=== PATIENT | female | born 1980 ===

== ENCOUNTER 2017-10-13 14:15 | Emergency (ER) | payer SELFPAY ==
[2017-10-13 14:21] VITALS: BP 127/80; PULSE 76; RESP 18; TEMP 97.8; O2SAT 98
--- NOTE | 2017-10-13 15:13 | C.PDOC ---
History Of Present Illness 37 y/o female presents to the ER complaining of mild right ear pain which has been present since yesterday. Patient states that she was cleaning her right ear yesterday and she had blood coming out of her ear in the morning today. Patient denies having fever, runny nose, cough, and sore throat. Time Seen by Provider: 10/13/17 14:30 Chief Complaint (Nursing): ENT Problem History Per: Patient History/Exam Limitations: None Onset/Duration Of Symptoms: Days Current Symptoms Are (Timing): Still Present Severity: Moderate Past Medical History Reviewed: Historical Data, Nursing Documentation, Vital Signs Vital Signs: Last Vital Signs Temp 97.8 F 10/13/17 14:18 Pulse 76 10/13/17 14:18 Resp 18 10/13/17 14:18 BP 127/80 10/13/17 14:18 Pulse Ox 98 10/13/17 18:27 - Medical History PMH: No Chronic Diseases Surgical History: No Surg Hx Family History: States: No Known Family Hx - Social History Hx Alcohol Use: No Hx Substance Use: No - Immunization History Hx Tetanus Toxoid Vaccination: No Hx Influenza Vaccination: No Hx Pneumococcal Vaccination: No Review Of Systems Except As Marked, All Systems Reviewed And Found Negative. Constitutional: Negative for: Fever, Chills ENT: Positive for: Ear Pain (right ear pain). Negative for: Nose Discharge, Throat Pain Respiratory: Negative for: Cough Physical Exam - Physical Exam Appears: Non-toxic, No Acute Distress Skin: Normal Color, Warm Head: Atraumatic, Normacephalic Ear(s): Left: Normal, Right: Other (dried blood in ear canal, no discharge in ear canal, no swelling, questionable TM perforation) Nose: Normal Oral Mucosa: Moist Throat: Normal, No Erythema, No Exudate Neck: Supple Chest: Symmetrical Cardiovascular: Rhythm Regular Respiratory: Normal Breath Sounds, No Rales, No Rhonchi, No Wheezing Neurological/Psych: Oriented x3, Normal Speech ED Course And Treatment O2 Sat by Pulse Oximetry: 98 (RA) Pulse Ox Interpretation: Normal Progress Note: Patient given Amoxicillin PO and Motrin PO. Patient has been discharged with prescription for Amoxicillin and Naproxen. She has been instructed to follow up with an ENT within 1 week. Disposition Counseled Patient/Family Regarding: Diagnosis, Need For Followup, Rx Given - Disposition Referrals: Mandeep Pinto MD [Staff Provider] - Disposition: HOME/ ROUTINE Disposition Time: 15:10 Condition: STABLE Additional Instructions: FOLLOW UP WITH EAR NOSE THROAT SPECIALIST WITHIN 1 WEEK USE MEDICATIONS DIRECTED DO NOT INSERT COTTON SWABS IN EAR RETURN TO EMERGENCY ROOM IF SYMPTOMS WORSEN SEGUIMIENTO CON ESPECIALISTA DE GARGANTA DE OJOS DE ODO DENTRO DE 1 SEMANA USE MEDICAMENTOS SEGN LO INDICADO NO INSERTE SWABS DE ALGODN EN EL ODO REGRESE AL BRE DE EMERGENCIA SI LOS SNTOMAS EMPEORAN Prescriptions: Amoxicillin 875 mg PO BID #14 tab Naproxen 375 mg PO BID PRN #20 tablet PRN Reason: pain Instructions: Ruptured Eardrum (DC) Forms: [employer] (Montserratian) Print Language: MALAYSIAN - POA Present On Arrival: None - Clinical Impression Clinical Impression: Ear abrasion, Eardrum trauma - Scribe Statement The provider has reviewed the documentation as recorded by the Scribe Tori Andre Provider Attestation: All medical record entries made by the Scribe were at my direction and personally dictated by me. I have reviewed the chart and agree that the record accurately reflects my personal performance of the history, physical exam, medical decision making, and the department course for this patient. I have also personally directed, reviewed, and agree with the discharge instructions and disposition.
[2017-10-13] MEDS ORDERED: Amoxicillin-Clav 500-125 mg Tab PO ONE (15:27)
== END 2017-10-13 15:28 | disposition home or self-care (01) ==
LOC: C.ER 14:15
DX: S00.411A Abrasion of right ear, initial encounter (principal); X58.XXXA Exposure to other specified factors, initial encounter; Y92.9 Unspecified place or not applicable

== ENCOUNTER 2018-05-17 17:56 | Emergency (ER) | payer SELFPAY ==
[2018-05-17 18:06] VITALS: BMI 30.2
[2018-05-17 18:17] VITALS: BP 114/79; PULSE 73; RESP 16; TEMP 98.4; O2SAT 97
--- NOTE | 2018-05-17 18:49 | C.PDOC ---
History Of Present Illness 37 yo female come in for evaluation of urticaria rash gradually developed for past 2 days ' after had cookies". Pt sts, rash is itchy, gradually spread over body. Otherwise ,pt denies fever, chills, recent illness, headache, dizziness, throat tightness or swelling, CP, SOB, dyspnea, wheezing, abd. pain, N/V, denies previous hx of allergy to food. Ambulate to Ed for evaluation, not in resp. distress. Time Seen by Provider: 05/17/18 18:11 Chief Complaint (Nursing): Allergic Reaction History Per: Patient Past Medical History Reviewed: Historical Data, Nursing Documentation, Vital Signs Vital Signs: Last Vital Signs Temp 98.4 F 05/17/18 18:17 Pulse 73 05/17/18 18:17 Resp 16 05/17/18 18:17 BP 114/79 05/17/18 18:17 Pulse Ox 97 05/17/18 18:17 - Medical History PMH: Hypothyroidism Family History: States: No Known Family Hx - Social History Hx Tobacco Use: No Hx Alcohol Use: No Hx Substance Use: No - Immunization History Hx Tetanus Toxoid Vaccination: No Hx Influenza Vaccination: No Hx Pneumococcal Vaccination: No Review Of Systems Except As Marked, All Systems Reviewed And Found Negative. Constitutional: Negative for: Fever, Chills ENT: Negative for: Mouth Swelling, Throat Pain, Throat Swelling Cardiovascular: Negative for: Chest Pain, Palpitations Respiratory: Negative for: Cough, Shortness of Breath, Wheezing Gastrointestinal: Negative for: Nausea, Vomiting, Abdominal Pain Genitourinary: Negative for: Dysuria Skin: Positive for: Rash Neurological: Negative for: Weakness, Numbness, Altered Mental Status, Headache, Dizziness Physical Exam - Physical Exam Appears: Well, Non-toxic, No Acute Distress Skin: Normal Color, Warm, Dry, Rash (scattered urticaria rash to anterior neck, B/L UEs, abdomen. No evidence of cellulitis) Eye(s): bilateral: PERRL Ear(s): Bilateral: Normal Nose: No Flaring, No Discharge Oral Mucosa: Moist, No Drooling Tongue: No Swelling Lips: No Swelling Throat: No Drooling, Other (uvula midline, no edema.) Neck: Supple Cardiovascular: Rhythm Regular, No Murmur, No JVD Respiratory: No Decreased Breath Sounds, No Accessory Muscle Use, No Stridor, No Wheezing Gastrointestinal/Abdominal: Soft, No Tenderness Extremity: Normal ROM, No Pedal Edema, No Swelling Neurological/Psych: Oriented x3, Normal Speech ED Course And Treatment O2 Sat by Pulse Oximetry: 97 Pulse Ox Interpretation: Normal Progress Note: On re-evaluation, pt is afebrile, hemodynamicaly stable. Non- toxic. Tolerate Po well in ED. PuslEOx 97% RA. ENT: no acute findings. uvula midline, no edema. Lungs: CTA B/L, BS equal B/L. ABd: benign, (-) guarding, (-) rebound. back: (-) CVA tenderness. SKin: scattered urticaria rash to body, no evidence of cellulitis. Pt has clinical findings c/w urticaria likely sec to allergy to food. Pt advised. ref. to F/u with PMD, Ballistic Technician in 2-3 days for re-eval. return if any new changes Disposition Counseled Patient/Family Regarding: Diagnosis, Need For Followup - Disposition Referrals: [facility] [Outside] Disposition: HOME/ ROUTINE Disposition Time: 18:45 Condition: STABLE Additional Instructions: Avoid food that cause allergic reaction take medication as prescribed Follow up with PMD, Ballistic Technician in 2-3 days for re-evaluation. Return to ED if any worsening or new changes Prescriptions: DiphenhydrAMINE [Benadryl] 25 mg PO BID #10 cap Famotidine [Pepcid] 20 mg PO BID #10 tab Prednisone [Deltasone] 40 mg PO DAILY #6 tablet Instructions: Mitchell Print Language: LAO - Clinical Impression Clinical Impression: Urticaria
== END 2018-05-17 18:56 | disposition home or self-care (01) ==
LOC: C.ER 17:56
DX: L50.9 Urticaria, unspecified (principal)

== ENCOUNTER 2018-10-12 07:12 | Emergency (ER) | payer OTHER, SELFPAY ==
[2018-10-12 07:12] VITALS: BMI 30.2
[2018-10-12 07:18] VITALS: BP 117/79; TEMP 98.6; O2SAT 97
--- NOTE | 2018-10-12 07:39 | C.PDOC ---
History Of Present Illness 38 y/o female presents to the ER complaining of watery diarrhea which has been present for the past 1 day. Patient states that she took Imodium at 1:30 am. However, patient continued to have diarrhea so she decided to come to the ER. She notes that she has some cramping intestinal pain. 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 Denies having fever,chills, nausea, vomiting, dysuria,hematuria, and unusual food intake. Time Seen by Provider: 10/12/18 07:23 Chief Complaint (Nursing): Abdominal Pain History Per: Patient History/Exam Limitations: no limitations Onset/Duration Of Symptoms: Days Current Symptoms Are (Timing): Still Present Severity: Moderate Past Medical History Reviewed: Historical Data, Nursing Documentation, Vital Signs Vital Signs: Last Vital Signs Temp 98.6 F 10/12/18 07:16 Pulse 102 H 10/12/18 07:16 Resp 20 10/12/18 07:16 BP 117/79 10/12/18 07:16 Pulse Ox 97 10/12/18 07:16 - Medical History PMH: Hyperthyroidism, Hypothyroidism Surgical History: Appendectomy Family History: States: No Known Family Hx - Social History Hx Tobacco Use: No Hx Alcohol Use: No Hx Substance Use: No - Immunization History Hx Tetanus Toxoid Vaccination: No Hx Influenza Vaccination: No Hx Pneumococcal Vaccination: No Review Of Systems Except As Marked, All Systems Reviewed And Found Negative. Constitutional: Negative for: Fever, Chills Gastrointestinal: Positive for: Abdominal Pain, Diarrhea. Negative for: Nausea, Vomiting Physical Exam - Physical Exam Appears: Non-toxic, No Acute Distress Skin: Normal Color, Warm, Dry Head: Atraumatic, Normacephalic Eye(s): bilateral: Normal Inspection Nose: Normal Oral Mucosa: Moist Neck: Supple Chest: Symmetrical Cardiovascular: Rhythm Regular Respiratory: Normal Breath Sounds, No Rales, No Rhonchi, No Wheezing Gastrointestinal/Abdominal: Normal Exam, Soft, No Tenderness, No Guarding, No Rebound Neurological/Psych: Oriented x3, Normal Speech ED Course And Treatment O2 Sat by Pulse Oximetry: 97 (RA) Pulse Ox Interpretation: Normal Progress Note: Patient treated with Bentyl PO. Disposition Counseled Patient/Family Regarding: Diagnosis, Need For Followup, Rx Given - Disposition Referrals: Saji Albrecht MD [Medical Doctor] - Disposition: HOME/ ROUTINE Disposition Time: 07:45 Condition: STABLE Additional Instructions: FOLLOW UP WITH YOUR DOCTOR IN 1-2 DAYS USE MEDICATION NEEDED DRINK PLENTY OF CLEAR FLUIDS, LIKE WATER AND GATORADE RETURN TO EMERGENCY ROOM IF YOUR SYMPTOMS BECOME WORSE SEGUIR CON ATKINS MDICO EN 1-2 ALEJO UTILICE MEDICAMENTOS CONCEPCIÓN SE NECESITE JOHNNY MUCHOS FLUIDOS LOVE, CONCEPCIÓN EL AGUA Y EL GATORADE VUELVA A LA BRE DE EMERGENCIA SI ANAI SNTOMAS SE HACEN PEOR Prescriptions: Dicyclomine [Bentyl] 20 mg PO Q6 PRN #15 tab PRN Reason: ABDOMINAL CRAMPING Instructions: Diarrhea and Traveler's Diarrhea, Adult (DC) Forms: [employer] (Wolof), Work Excuse Print Language: JAPANESE - Clinical Impression Clinical Impression: Diarrhea, Abdominal cramps - Scribe Statement The provider has reviewed the documentation as recorded by the Scribe Tori Andre Provider Attestation: All medical record entries made by the Scribe were at my direction and personally dictated by me. I have reviewed the chart and agree that the record accurately reflects my personal performance of the history, physical exam, medical decision making, and the department course for this patient. I have also personally directed, reviewed, and agree with the discharge instructions and disposition.
[2018-10-12 07:49] VITALS: PULSE 97; RESP 16
== END 2018-10-12 07:50 | disposition home or self-care (01) ==
LOC: C.ER 07:12
DX: R19.7 Diarrhea, unspecified (principal); R10.9 Unspecified abdominal pain